=== PATIENT | female | born 1965 | race Caucasian/White ===

== ENCOUNTER 2020-05-06 13:01 | Emergency (ER) | payer MEDICAID ==
[~2020-05-06] VITALS: Ht 144.8 cm; Wt 42.0 kg
--- NOTE | 2020-05-06 14:35 | NUR ---
advanced manager: pt from lobby to room 31
[2020-05-06 15:44] VITALS: BP 142/85
== END 2020-05-06 16:05 | disposition home or self-care (01) ==
LOC: ED 15:30
DX: J44.1 Chronic obstructive pulmonary disease with (acute) exacerbation (principal); Z20.828 Contact with and (suspected) exposure to other viral communicable diseases; R07.89 Other chest pain; R05 Cough; R50.9 Fever, unspecified; F17.210 Nicotine dependence, cigarettes, uncomplicated
CPT/HCPCS: 71045; 87635; 99284; 99406

== ENCOUNTER 2020-05-19 07:41 | Emergency (ER) | payer MEDICAID ==
[~2020-05-19] VITALS: Ht 144.8 cm; Wt 43.1 kg
--- NOTE | 2020-05-19 07:58 | NUR ---
Alfonso SKINNER in room for sheree
--- NOTE | 2020-05-19 08:14 | NUR ---
xray in room
[2020-05-19] MEDS ORDERED: ALBUTEROL/IPRATROPIUM 2.5MG/0.5MG, 3 ML ONE (08:50)
[2020-05-19] MEDS ORDERED: ALBUTEROL/IPRATROPIUM 2.5MG/0.5MG, 3 ML NPPB ONE (09:00)
[2020-05-19 09:11] VITALS: BP 124/74
== END 2020-05-19 09:12 | disposition home or self-care (01) ==
LOC: ED 09:06
DX: J44.1 Chronic obstructive pulmonary disease with (acute) exacerbation (principal); R05 Cough
CPT/HCPCS: 71045; 93005; 94640; 99283; J7512; 99406

== ENCOUNTER 2020-05-25 22:33 | Emergency (ER) | payer MEDICAID ==
[2020-05-25 22:36] VITALS: BP 161/88
--- NOTE | 2020-05-25 23:10 | NUR ---
DR SPENCE AT BEDSIDE FOR ASSESSMENT PT EATING PANCAKES IN [facility].
--- NOTE | 2020-05-25 23:19 | NUR ---
Patient/Caregiver given discharge instructions and they have confirmed that they understand the instructions. Patient ambulatory with steady gait.
== END 2020-05-25 23:22 | disposition home or self-care (01) ==
LOC: ED 23:00
DX: R05 Cough (principal); F17.210 Nicotine dependence, cigarettes, uncomplicated; F15.10 Other stimulant abuse, uncomplicated; R94.31 Abnormal electrocardiogram [ECG] [EKG]; Z72.9 Problem related to lifestyle, unspecified; J44.9 Chronic obstructive pulmonary disease, unspecified
CPT/HCPCS: 93005; 99283; 99406